=== PATIENT | female | born 1970 | race African-American/Black ===

== ENCOUNTER 2017-10-26 20:45 | Emergency (ER) | payer SELFPAY ==
[~2017-10-26] VITALS: Ht 165.1 cm; Wt 115.0 kg
[2017-10-26 21:20] VITALS: BP 149/63; PULSE 69; RESP 18; TEMP 97.5; O2SAT 99
[2017-10-26 21:48] VITALS: O2SAT 100
[2017-10-26 21:49] LABS: AUTOMATED NEUTROPHIL # 3.5 TH/MM3 (1.8-7.7); BASOPHIL % 0.6 % (0.0-2.0); EOSINOPHIL # 0.2 TH/MM3 (0-0.4); EOSINOPHIL % 2.8 % (0.0-4.0); HEMATOCRIT 38.7 % (35.0-46.0); HEMOGLOBIN 12.5 GM/DL (11.6-15.3); LYMPHOCYTE # 3.4 TH/MM3 (1.0-4.8); MEAN CELL VOLUME 84.7 FL (80.0-100.0); MEAN CORPUSCULAR HEMOGLOBIN 27.3 PG (27.0-34.0); MEAN CORPUSCULAR HGB CONC 32.2 % (32.0-36.0); MEAN PLATELET VOLUME 8.9 FL (7.0-11.0); MONO % 9.5 % (0.0-8.0); MONOCYTE # 0.7 TH/MM3 (0-0.9); NEUT % 44.1 % (16.0-70.0); PLATELET COUNT 232 TH/MM3 (150-450); RED BLOOD COUNT 4.57 MIL/MM3 (4.00-5.30); RED CELL DISTRIBUTION WIDTH 13.9 % (11.6-17.2); WHITE BLOOD COUNT 7.8 TH/MM3 (4.0-11.0)
--- NOTE | 2017-10-26 21:50 | RADRPT ---
EXAM DATE/TIME: 10/26/2017 21:31 [place] COMPARISON: No previous studies available for comparison. INDICATIONS : Chest pain. MEDICAL HISTORY : None. SURGICAL HISTORY : None. ENCOUNTER: Initial ACUITY: 1 day PAIN SCORE: 3/10 LOCATION: Bilateral chest FINDINGS: PA and lateral views of the chest demonstrate the lungs to be symmetrically aerated without evidence of mass, infiltrate or effusion. The cardiomediastinal contours are unremarkable. Osseous structure s are intact. CONCLUSION: Normal examination. Neto Arevalo MD on October 26, 2017 at 21:48 Board Certified Radiologist. This report was verified electronically.
[2017-10-26 22:01] LABS: BLOOD UREA NITROGEN 18 MG/DL (7-18); CALCIUM 8.9 MG/DL (8.5-10.1); CHLORIDE 106 MEQ/L (98-107); CREATININE 1.05 MG/DL (0.50-1.00); GLOMERULAR FILTRATION RATE 67 ML/MIN (>89); GLUCOSE,RANDOM 83 MG/DL (74-106); SODIUM (NA) 141 MEQ/L (136-145)
[2017-10-26 22:05] LABS: TROPONIN I LESS THAN 0.02 NG/ML (0.02-0.05)
--- NOTE | 2017-10-26 22:39 | PD ---
HPI Chief Complaint: Chest Pain Time Seen by Provider: 21:45 Travel History International Travel<30 days: No Contact w/Intl Traveler<30days: No Traveled to known affect area: No History of Present Illness HPI Is a well 47-year-old woman who presents to the emergency department complaining of chest pain. She describes chest pain, on the left side, starting about 6 or 7:00 this afternoon. She states she has had in the past, couple times a year. Previous workups been negative including a stress test a couple years ago. She had tingling on the left side is been ongoing for months also. She doctor her primary doctor also. She has had no leg swelling. She has had no other associated symptoms. A little bit of cough is been ongoing. No other complaints. History Past Medical History Narrative Medical No tobacco. No history of heart disease. Tetanus Vaccination: Unknown Influenza Vaccination: No LMP: menapause : 3 Para: 3 Social History Alcohol Use: No Tobacco Use: No Allergies-Medications (Allergen,Severity, Reaction): Coded Allergies: No Known Allergies (Verified , 07/25/16) Reported Meds & Prescriptions Reported Meds & Active Scripts Active No Active Prescriptions or Reported Medications Review of Systems Except as stated in HPI: all other systems reviewed are Neg Physical Exam Narrative GENERAL: Well-appearing 47-year-old woman, no acute distress. SKIN: Focused skin assessment warm/dry. HEAD: Atraumatic. Normocephalic. EYES: Pupils equal and round. No scleral icterus. No injection or drainage. ENT: No nasal bleeding or discharge. Mucous membranes pink and moist. NECK: Trachea midline. No JVD. CARDIOVASCULAR: Regular rate and rhythm. No murmur appreciated. RESPIRATORY: No accessory muscle use. Clear to auscultation. Breath sounds equal bilaterally. GASTROINTESTINAL: Abdomen soft, non-tender, nondistended. Hepatic and splenic margins not palpable. MUSCULOSKELETAL: No obvious deformities. No clubbing. No cyanosis. No edema. NEUROLOGICAL: Awake and alert. No obvious cranial nerve deficits. Motor grossly within normal limits. Normal speech. PSYCHIATRIC: Appropriate mood and affect; insight and judgment normal. Data Data Last Documented VS Vital Signs Date Time Temp Pulse Resp B/P (MAP) Pulse Ox O2 Delivery O2 Flow Rate FiO2 10/26/17 21:48 100 Room Air 10/26/17 21:20 97.5 69 18 149/63 (91) Orders Orders Electrocardiogram (10/26/17 21:12) Complete Blood Count With Diff (10/26/17 21:12) Basic Metabolic Panel (Bmp) (10/26/17 21:12) Ckmb (Isoenzyme) Profile (10/26/17 21:12) Troponin I (10/26/17 21:12) Iv Access Insert/Monitor (10/26/17 21:12) Ecg Monitoring (10/26/17 21:12) Oxygen Administration (10/26/17 21:12) Oximetry (10/26/17 21:12) Chest, Pa & Lat (10/26/17 21:12) CKMB (10/26/17 21:00) CKMB% (10/26/17 21:00) Labs Laboratory Tests Test 10/26/17 21:00 White Blood Count 7.8 TH/MM3 Red Blood Count 4.57 MIL/MM3 Hemoglobin 12.5 GM/DL Hematocrit 38.7 % Mean Corpuscular Volume 84.7 FL Mean Corpuscular Hemoglobin 27.3 PG Mean Corpuscular Hemoglobin Concent 32.2 % Red Cell Distribution Width 13.9 % Platelet Count 232 TH/MM3 Mean Platelet Volume 8.9 FL Neutrophils (%) (Auto) 44.1 % Lymphocytes (%) (Auto) 43.0 % Monocytes (%) (Auto) 9.5 % Eosinophils (%) (Auto) 2.8 % Basophils (%) (Auto) 0.6 % Neutrophils # (Auto) 3.5 TH/MM3 Lymphocytes # (Auto) 3.4 TH/MM3 Monocytes # (Auto) 0.7 TH/MM3 Eosinophils # (Auto) 0.2 TH/MM3 Basophils # (Auto) 0.0 TH/MM3 CBC Comment DIFF FINAL Differential Comment Blood Urea Nitrogen 18 MG/DL Creatinine 1.05 MG/DL Random Glucose 83 MG/DL Calcium Level 8.9 MG/DL Sodium Level 141 MEQ/L Potassium Level 3.7 MEQ/L Chloride Level 106 MEQ/L Carbon Dioxide Level 29.0 MEQ/L Anion Gap 6 MEQ/L Estimat Glomerular Filtration Rate 67 ML/MIN Total Creatine Kinase 218 U/L Creatine Kinase MB 2.7 NG/ML Creatine Kinase MB % 1.2 % Troponin I LESS THAN 0.02 NG/ML MDM Medical Decision Making Medical Screen Exam Complete: Yes Emergency Medical Condition: Yes Interpretation(s) My review of EKG: Normal sinus rhythm at a rate of 63, normal axis, normal illness, no acute LABS: CBC is unremarkable. CMP is unremarkable Troponins negative Chest x-ray negative Differential Diagnosis GERD, anxiety, ACS, PE, other Narrative Course Medical decision making INITIAL is a 47-year-old who presents emerged from complaining of chest pain. She looks well. That has been intermittently in the past. EKG shows no definite evidence of acute ischemia. She looks well. Labs and x-ray otherwise unremarkable. I do not think this is likely cardiac. She is low risk for major adverse cardiac events. Recommend outpatient follow-up. Diagnosis Primary Impression: Atypical chest pain Additional Instructions: Follow-up with her primary doctor in the next 2-4 days. Return to the emergency department for any worsening chest pain, trouble breathing, or any other new or worsening symptoms. Med/Other Pt SpecificInfo: No Change to Meds Scripts No Active Prescriptions or Reported Meds Disposition: 01 DISCHARGE HOME Condition: Stable Rome Nelson MD Oct 26, 2017 22:39
--- NOTE | 2017-10-27 08:47 | EKG ---
Date Performed: 10/26/2017 Time Performed: 21:02:24 PTAGE: 47 years EKG: Sinus rhythm POSSIBLE LEFT ATRIAL ENLARGEMENT NONSPECIFIC T-WAVE ABNORMALITY BORDERLINE ECG PREVIOUS TRACING : 07/26/2016 03.48 Since the previous tracing, no significant change noted DOCTOR: Kang Moreno Interpretating Date/Time 10/27/2017 08:46:41
== END 2017-10-26 23:37 | disposition home or self-care (01) ==
LOC: NEPC 20:45
DX: R07.89 Other chest pain (principal); R05 Cough; R94.31 Abnormal electrocardiogram [ECG] [EKG]
CPT/HCPCS: 71046; 80048; 82550; 82552; 84484; 85025; 93005

== ENCOUNTER 2017-12-15 16:44 | Emergency (ER) | payer MEDICAID ==
[~2017-12-15] VITALS: Ht 162.6 cm; Wt 110.0 kg
[2017-12-15 17:12] VITALS: BP 154/74; PULSE 77; RESP 16; TEMP 99; O2SAT 99
[2017-12-15] MEDS ORDERED: LIDOCAINE HCL 1% 50 ML VIAL INFIL ONE (19:00)
[2017-12-15] MEDS ORDERED: PERC5TAB12 PO (19:08)
[2017-12-15] MEDS ORDERED: PENI500T PO (19:08)
--- NOTE | 2017-12-15 19:09 | PD ---
HPI Chief Complaint: Facial Pain or Swelling Time Seen by Provider: 18:56 Travel History International Travel<30 days: No Contact w/Intl Traveler<30days: No Traveled to known affect area: No History of Present Illness HPI 47-year-old female here for evaluation of dental pain, right facial swelling and facial pain. Symptoms started yesterday. The patient believes that she may have a dental cavity. No fevers or chills. No difficulty swallowing. No respiratory difficulty. PFSH Past Medical History Autoimmune Disease: No Blood Disorders: No Heart Rhythm Problems: No Cancer: No Cardiac Catheterization: No Cardiovascular Problems: No High Cholesterol: No Congestive Heart Failure: No Diabetes: No Diminished Hearing: No Endocrine: No Gastrointestinal Disorders: No Genitourinary: No Heparin Induced Thrombocytopen: No Hypertension: No Implanted Vascular Access Dvce: No Musculoskeletal: Yes (arthritis in neck and leg) Neurologic: No Psychiatric: No Reproductive: No Respiratory: No Myocardial Infarction: No ?: Unknown : 3 Para: 3 Miscarriage: 0 : 0 Tubal Ligation: Yes Past Surgical History Coronary Artery Bypass Graft: No Other Surgery: Yes (ankle, and tubal ligation) Family History Family Myocardial Infarction: Yes (MOTHER HAD [place]) Social History Alcohol Use: No Tobacco Use: No Substance Use: No Allergies-Medications (Allergen,Severity, Reaction): Coded Allergies: No Known Allergies (Verified , 07/25/16) Reported Meds & Prescriptions Reported Meds & Active Scripts Active No Active Prescriptions or Reported Medications Review of Systems Except as stated in HPI: all other systems reviewed are Neg Physical Exam Narrative GENERAL: Well-developed, well-nourished, awake, alert, no apparent distress. SKIN: Focused skin assessment warm/dry. HEAD: Normocephalic. Moderate right facial swelling. No fluctuance or induration. EYES: Pupils equal and round. No scleral icterus. No injection or drainage. ENT: No nasal bleeding or discharge. Mucous membranes pink and moist. Poor dentition with several dental caries. Tenderness to the right upper molars. No trismus. No drooling or stridor. Normal pharynx. NECK: Trachea midline. No JVD. No submental or anterior neck swelling or induration. CARDIOVASCULAR: Regular rate and rhythm. RESPIRATORY: No accessory muscle use. Clear to auscultation. Breath sounds equal bilaterally. MUSCULOSKELETAL: No obvious deformities. No clubbing. No cyanosis. No edema. NEUROLOGICAL: Awake and alert. No obvious cranial nerve deficits. Motor grossly within normal limits. Normal speech. PSYCHIATRIC: Appropriate mood and affect; insight and judgment normal. Data Data Last Documented VS Vital Signs Date Time Temp Pulse Resp B/P (MAP) Pulse Ox O2 Delivery O2 Flow Rate FiO2 12/15/17 17:12 99.0 77 16 154/74 (100) 99 Orders Orders Lidocaine 1% Inj (50 Ml) (Xylocaine 1% I (12/15/17 19:00) [facility] Medical Decision Making Medical Screen Exam Complete: Yes Emergency Medical Condition: Yes Differential Diagnosis Dental infection, dental caries, dental abscess Narrative Course Vital signs reviewed. Patient has poor dentition with right cheek swelling. There are no physical exam findings to suggest deep space neck infection. Right greater palatine nerve block was performed by me. See procedure note. Patient experienced significant pain relief with this. She will be started on Pen-Vee K and advised to follow-up with a dentist as soon as possible. She was informed on when to return to the emergency department. She verbalizes understanding and agreement with plan. Procedures Procedure Narrative Right greater palatine nerve block: 1 cc of 1% lidocaine was injected in the area of the right greater palatine nerve. The patient experienced immediate relief of pain. Tolerated well. No complications. Diagnosis Primary Impression: Infected dental caries Referrals: Dentist 3 days Additional Instructions: Follow-up with a dentist this week. Return to the emergency department for worsening symptoms or any other concerns. Scripts Oxycodone-Acetaminophen (Percocet) 5-325 mg Tab 1 TAB PO Q6H Y for PAIN, #6 TAB 0 Refills Prov: Catalino Goodwin MD 12/15/17 Penicillin V Potassium (Penicillin V Potassium) 500 Mg Tab 500 MG PO Q8H for Infection for 10 Days, #30 TAB 0 Refills Prov: Catalino Goodwin MD 12/15/17 Disposition: 01 DISCHARGE HOME Condition: Stable Catalino Goodwin MD December 15, 2017 19:09
[2017-12-15] MEDS ORDERED: PENICILLIN V POTASSIUM 500 MG TAB PO ONE (19:15)
[2017-12-15] MEDS ORDERED: LIDOCAINE HCL 1% PF 30 ML VIAL INFIL ONE (20:00)
== END 2017-12-15 19:19 | disposition home or self-care (01) ==
LOC: NEPD 16:44
DX: K02.9 Dental caries, unspecified (principal)
CPT/HCPCS: 64400